=== PATIENT | female | born 1995 | race Hispanic/Latino ===

== ENCOUNTER 2018-04-03 15:13 | Emergency (ER) | payer SELFPAY ==
[~2018-04-03] VITALS: Ht 157.5 cm; Wt 122.0 kg
[2018-04-03] MEDS ORDERED: MOTRIN400 MG PO (16:31)
[2018-04-03 16:50] VITALS: BP 127/87
== END 2018-04-03 16:51 | disposition home or self-care (01) | DRG 563 ==
LOC: ED 15:13
DX: S39.012A Strain of muscle, fascia and tendon of lower back, initial encounter (principal); G89.29 Other chronic pain; M54.6 Pain in thoracic spine; X58.XXXA Exposure to other specified factors, initial encounter